=== PATIENT | male | born 1975 | race Two or more races ===

== ENCOUNTER 2018-03-02 10:53 | Emergency (ER) | payer MEDICAID ==
[2018-03-02] MEDS ORDERED: Morphine 4 MG/ML Syringe IVPUSH ONE (11:15)
[2018-03-02] MEDS ORDERED: Sodium Chloride 0.9% 1,000 ML IV ONE (11:15)
[2018-03-02] MEDS ORDERED: Ondansetron 4 MG/2 ML SDV IVPUSH ONE (11:16)
[2018-03-02] MEDS ORDERED: Morphine 2 MG/ML Syringe ONE (11:34)
[2018-03-02] MEDS ORDERED: Morphine 2 MG/ML Syringe IVPUSH ONE ×2 (11:35→12:47)
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
--- NOTE | 2018-03-02 12:58 | CR ---
EXAMINATION: Lumbar spine HISTORY: Fall COMPARISON: None TECHNIQUE: AP and lateral views FINDINGS: The lumbar spinal alignment is normal. The vertebral body heights and disc spaces appear we ll-maintained. There is no abnormal bone marrow signal. SI joints are symmetric. Minimal marginal ost eophytes are noted. IMPRESSION: 1. No acute findings noted within the lumbar spine.
--- NOTE | 2018-03-02 13:01 | CR ---
EXAMINATION: Pelvis and right hip HISTORY: Fall COMPARISON: None TECHNIQUE: AP pelvis and 2 views of the right hip FINDINGS: There is no acute osseous abnormality, dislocation, or fracture. Bone mineralization and mona int spaces are preserved. SI joints are symmetric. The iliopectineal lines are intact. IMPRESSION: No acute findings demonstrated.
== END 2018-03-02 13:40 | disposition home or self-care (01) ==
LOC: MW.ED 10:53
DX: S70.01XA Contusion of right hip, initial encounter (principal); Z88.8 Allergy status to other drugs, medicaments and biological substances; Z79.899 Other long term (current) drug therapy; W19.XXXA Unspecified fall, initial encounter
CPT/HCPCS: 72100; 73502; 96361; 96374; 96375; 96376; 99283; J2270; J2405; J7040

== ENCOUNTER 2018-03-04 16:57 | Emergency (ER) | payer MEDICAID ==
[2018-03-04] MEDS ORDERED: Morphine 4 MG/ML Syringe IVPUSH ONE (17:24)
[2018-03-04] MEDS ORDERED: Ondansetron 4 MG Tab.DIS PO ONE (17:24)
--- NOTE | 2018-03-04 17:28 | EDM.PDOC ---
ED HPI GENERAL MEDICAL PROBLEM - General Chief Complaint: Back Pain or Injury Stated Complaint: PT HAS BACK PAIN Time Seen by Provider: 03/04/18 17:11 Source of Information: Reports: Patient History Limitations: Reports: No Limitations - History of Present Illness INITIAL COMMENTS - FREE TEXT/NARRATIVE: HISTORY AND PHYSICAL: History of present illness: Patient is a 42-year-old male who presents to the emergency room today via EMS with complaints of low back pain. He states on Wednesday he had fallen from standing height onto his buttocks, injuring his tailbone. He was seen in our emergency room on 03/02/2018 for this injury. At that time he did have a hip and lumbar x-ray, both were normal without fracture or dislocation. He states he has been confined to his bed due to painful with movement. Patient was prescribed diclofenac and Flexeril from his initial ER visit. He states he has been using the Flexeril routinely but has not been using the diclofenac as he does have a history of kidney injury. States the medication has not given him relief. He denies any urinary or fecal incontinence. Denies any numbness or tingling to his distal extremities. He does have full range of motion to his upper and lower extremities although he does have pain to the tailbone with flexion of the hip and knee. He is able to walk, but does cause pain. at the bedside states that he appears unsteady while walking "to and from point A to point B". Review of systems: As per history of present illness and below otherwise all systems reviewed and negative. Past medical history: As per history of present illness and as reviewed below otherwise noncontributory. Surgical history: As per history of present illness and as reviewed below otherwise noncontributory. Social history: No reported history of drug or alcohol abuse. Family history: As per history of present illness and as reviewed below otherwise noncontributory. Physical exam: General: Well developed and well nourished 42-year-old male. Alert and oriented. Nontoxic appearing, tearful and grimacing although appears in stress. HEENT: Atraumatic, normocephalic, pupils equal and reactive bilaterally, negative for conjunctival pallor or scleral icterus, mucous membranes moist, throat clear, neck supple, nontender, trachea midline. No drooling or trismus noted. No meningeal signs Lungs: Clear to auscultation, breath sounds equal bilaterally, chest nontender. Heart: S1S2, regular rate and rhythm without overt murmur Abdomen: Soft, nondistended, nontender. Negative for masses or hepatosplenomegaly. Negative for costovertebral tenderness. Pelvis: Stable nontender. Genitourinary: Deferred. Rectal: Deferred. Skin: Intact, warm, dry. No lesions or rashes noted. Extremities: Atraumatic, negative for cords or calf pain. Neurovascular unremarkable. C-spine/Back: No pinpoint vertebral tenderness upon palpation. No crepitus, step -offs or obvious deformities. The urinary or fecal incontinence. Denies any numbness or tingling to extremities. +CMS to lower and upper extremities. Strong pedal pulses. Cap refill less than 3 seconds to upper and lower extremities. I did witness this patient ambulate; he is slow but steady on his feet. No deficits or weakness noted. He is able to rock on his heels and toes. Neuro: Awake, alert, oriented. Cranial nerves II through XII unremarkable. Cerebellum unremarkable. Motor and sensory unremarkable throughout. Exam nonfocal. Notes: Upon arrival the patient is requesting an MRI. I did explain to the patient that these are not available emergently unless under certain circumstances. Patient is aware and agreeable for a CT scan. She does not take the diclofenac because he did have an acute kidney injury in the past and was told not to take any anti-inflammatories. He is requesting medication at this time to better manage his pain. Vital signs have improved. Patient is alert and oriented and appears comfortable. He is bent over leaning forward playing on his cellphone, laughing with his . Pt reports pain has improved since arrival, after medications. Currently 09/28. Did offer the patient admission for his intractable back pain. He declines, stating that he would like to go home. He is requesting pain medication for home use as he states the medications he currently has are not effective. We discussed [place] prescription. He states the flexeril was not providing relief, and will discontinue this medication; patient and at bedside voice understanding and are agreeable to plan of care. He states he has no appointment on 03/07/18 at [facility] and will follow up for further evaluation and management. Diagnostics: Lumbar CT Therapeutics: Morphine, Zofran, Dilaudid Prescription: [place] PRN (#20) Impression: Lumbar back pain Plan: 1. Please avoid being sedentary as this can cause an increase in back pain. Every so often please get up and move around. When resting please rest on a flat firm surface. Avoid resting on your abdomen. 2. Tylenol as needed for pain. [place] for moderate to severe pain. This medication does cause drowsiness so do not take it will driving her needing to be functioning outside of the house. 3. Please keep your appointment with your primary care provider for Wednesday, 03/07. Return to the ED as needed and as discussed. Definitive disposition and diagnosis as appropriate pending reevaluation and review of above. Lower Back Pain Score (Numeric/FACES): 10 - Related Data Allergies Allergy/AdvReac Type Severity Reaction Status Date / Time lisinopril Allergy Cannot Verified 03/02/18 11:07 Remember Home Meds: Home Meds Cyclobenzaprine [Flexeril] 10 mg PO BID #10 tab 03/02/18 [Rx] Diclofenac Sodium 100 gm TP QID #1 gel..gram. 03/02/18 [Rx] Diclofenac Sodium [Voltaren] 75 mg PO BIDMEALS #12 tab.cr 03/02/18 [Rx] Lisinopril 20 mg PO DAILY 03/02/18 [History] Omeprazole 40 mg PO DAILY 03/02/18 [History] Past Medical History HEENT History: Reports: None Cardiovascular History: Reports: Hypertension Respiratory History: Reports: Sleep Apnea Gastrointestinal History: Reports: Hiatal Hernia Genitourinary History: Reports: Acute Renal Failure Musculoskeletal History: Reports: Other (See Below) Other Musculoskeletal History: "trouble with heels" per patient. Neurological History: Reports: None Psychiatric History: Reports: None Endocrine/Metabolic History: Reports: None Dermatologic History: Reports: None - Infectious Disease History Infectious Disease History: Reports: Chicken Pox Social & Family History - Family History Family Medical History: Noncontributory - Tobacco Use Smoking Status *Q: Former Smoker Used Tobacco, but Quit: Yes Month/Year Tobacco Last Used: 2007 - Caffeine Use Caffeine Use: Reports: Soda - Recreational Drug Use Recreational Drug Use: Yes Recreational Drug Type: Reports: Marijuana/Hashish Other Recreational Drug Type: rare occasion ED ROS GENERAL - Review of Systems Review Of Systems: ROS reveals no pertinent complaints other than HPI. ED EXAM,LOWER BACK PAIN/INJURY - Physical Exam Exam: See Below (See dictation) Course - Vital Signs Last Recorded V/S: Last Vital Signs Temp 99.3 F 03/04/18 17:01 Pulse 101 H 03/04/18 17:01 Resp 22 H 03/04/18 17:01 BP 145/103 H 03/04/18 17:01 Pulse Ox 97 03/04/18 17:01 - Orders/Labs/Meds Orders: Active Orders 24 hr Category Date Time Status Lumbar Spine wo Cont [CT] Stat Exams 03/04/18 17:24 Taken Meds: Medications Discontinued Medications Generic Name Dose Route Start Last Admin Trade Name Freq PRN Reason Stop Dose Admin Hydromorphone HCl 0.5 mg 03/04/18 18:14 03/04/18 18:19 Dilaudid IV 03/04/18 18:15 0.5 mg ONETIME ONE Administration Morphine Sulfate 4 mg 03/04/18 17:24 03/04/18 17:36 Morphine IVPUSH 03/04/18 17:25 Not Given ONETIME ONE Morphine Sulfate 4 mg 03/04/18 17:33 03/04/18 17:35 Morphine IVPUSH 03/04/18 17:34 4 mg ONETIME ONE Administration Morphine Sulfate Confirm 03/04/18 17:31 03/04/18 17:36 Morphine Administered 03/04/18 17:32 Not Given Dose 10 mg .ROUTE .STK-MED ONE Ondansetron HCl 4 mg 03/04/18 17:24 03/04/18 17:35 Zofran Odt PO 03/04/18 17:25 4 mg ONETIME ONE Administration Departure - Departure Time of Disposition: 18:40 Disposition: Home, Self-Care 01 Clinical Impression: Lumbar back pain - Discharge Information Instructions: Back Pain, Adult, [id number] Forms: ED Department Discharge Additional Instructions: The following information is given to patients seen in the emergency department who are being discharged to home. This information is to outline your options for follow-up care. We provide all patients seen in our emergency department with a follow-up referral. The need for follow-up, as well as the timing and circumstances, are variable depending upon the specifics of your emergency department visit. If you don't have a primary care physician on staff, we will provide you with a referral. We always advise you to contact your personal physician following an emergency department visit to inform them of the circumstance of the visit and for follow-up with them and/or the need for any referrals to a consulting specialist. The emergency department will also refer you to a specialist when appropriate. This referral assures that you have the opportunity for follow-up care with a specialist. All of these measure are taken in an effort to provide you with optimal care, which includes your follow-up. Under all circumstances we always encourage you to contact your private physician who remains a resource for coordinating your care. When calling for follow-up care, please make the office aware that this follow-up is from your recent emergency room visit. If for any reason you are refused follow-up, please contact the [facility] Emergency Department at and asked to speak to the emergency department charge nurse. [facility] [address] [place] [id number] 1. Please avoid being sedentary as this can cause an increase in back pain. Every so often please get up and move around. When resting please rest on a flat firm surface. Avoid resting on your abdomen. 2. Tylenol as needed for pain. [place] for moderate to severe pain. This medication does cause drowsiness so do not take it will driving her needing to be functioning outside of the house. DO not take this medication with the Flexeril as we discussed. 3. Please keep your appointment with your primary care provider for Wednesday, 03/07. Return to the ED as needed and as discussed. - My Orders Last 24 Hours: My Active Orders 03/04/18 17:24 Lumbar Spine wo Cont [CT] Stat - Assessment/Plan Last 24 Hours: My Active Orders 03/04/18 17:24 Lumbar Spine wo Cont [CT] Stat
[2018-03-04] MEDS ORDERED: Morphine 10 MG/ML Syringe ONE (17:31)
[2018-03-04] MEDS ORDERED: Morphine 10 MG/ML Syringe IVPUSH ONE (17:33)
[2018-03-04] MEDS ORDERED: HYDROmorphone 2 MG/ML SDV IV ONE (18:14)
--- NOTE | 2018-03-07 08:45 | CT ---
EXAM DATE: 03/04/18 PATIENT'S AGE: 42 Patient: DAMASO VINCENT Facility: [place], [place] Site . Site : [id number] Study: CT Spine Lumbar [id number]/[id number] 6:03:22 PM Ordering Physician: Doctor Ghosh Final Report: INDICATION: Numbness and left toes following fall a few days prior TECHNIQUE: CT lumbar spine without contrast. COMPARISON: None FINDINGS: Vertebral alignment: Alignment is normal. Vertebrae: There are no fractures or suspicious bony lesions. Discs and facet joints: Disc spaces and facets are within normal limits. Extraspinal findings: Prevertebral soft tissues and visualized retroperitoneum are unremarkable. IMPRESSION: Unremarkable lumbar spine CT. Dictated by Judson Staples MD @ 03/04/2018 6:30:15 PM Dictated by: Judson Staples MD @ 03/04/2018 18:30:20 (Electronic Signature) Report Signed by Proxy. ANA
== END 2018-03-04 19:00 | disposition home or self-care (01) ==
LOC: MW.ED 16:57
DX: M54.5 Low back pain (principal); Z88.8 Allergy status to other drugs, medicaments and biological substances; Z87.891 Personal history of nicotine dependence; I10 Essential (primary) hypertension
CPT/HCPCS: 72131; 96374; 96375; 99284; A9270; J1170; J2270

== ENCOUNTER 2018-03-12 11:46 | Emergency (ER) | payer MEDICAID ==
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
[2018-03-12] MEDS ORDERED: Ketorolac 60 MG/2 ML SDV IM ONE (13:03)
== END 2018-03-12 13:10 | disposition home or self-care (01) ==
LOC: MW.ED 11:46
DX: M54.5 Low back pain (principal); Z79.899 Other long term (current) drug therapy; Z88.8 Allergy status to other drugs, medicaments and biological substances
CPT/HCPCS: 99283